=== PATIENT | male | born 1970 | race Caucasian/White ===

== ENCOUNTER 2018-05-22 16:02 | Emergency (ER) | payer OTHER ==
[~2018-05-22] VITALS: Ht 175.3 cm; Wt 72.1 kg
[2018-05-22] MEDS ORDERED: TOPROL XL100 M1 (16:39)
== END 2018-05-22 19:50 | disposition home or self-care (01) ==
LOC: ER 16:02
DX: J32.8 Other chronic sinusitis (principal)

== ENCOUNTER 2023-11-19 17:02 | Emergency (ER) | payer OTHER ==
[~2023-11-19] VITALS: Ht 172.7 cm; Wt 74.8 kg
[~2023-11-19 17:02] MED LIST: TOPROL XL100 M1
[2023-11-19 18:34] LABS: HEMATOCRIT 43.2 % (39.0-48.0); HEMOGLOBIN 14.9 g/dL (13-16.00); MEAN CELL VOLUME 93.7 fL (80.0-100.00); MEAN CORPUSCULAR HEMOGLOBIN 32.4 pg (27.00-32.0); MEAN CORPUSCULAR HGB CONC 34.6 g/dl (32.0-36.0); PLATELET COUNT 205 K/uL (150-450); RED BLOOD COUNT 4.61 M/uL (4.00-6.00); RED CELL DISTRIBUTION WIDTH 13.5 % (11.5-14.5)
[2023-11-19 18:52] LABS: PH,URINE 6.5 (5.0-8.0); URINE APPEARANCE Clear; URINE BILIRRUBIN Negative (NEGATIVE); URINE BLOOD Negative; URINE COLOR Yellow; URINE GLUCOSE Negative (NEGATIVE); URINE KETONE Negative (NEGATIVE); URINE LEUKOCYTE Negative; URINE NITRATE Negative; URINE PROTEIN Negative (NEGATIVE); URINE UROBILINOGEN 0.2 E.U./dl
[2023-11-19 19:15] LABS: URINE BACTERIA 3.7 uL (0.0-1933); URINE RBC 0.1 uL (0.0-20.8); URINE WBC 0.7 uL (0.0-23.2)
== END 2023-11-19 20:17 | disposition home or self-care (01) ==
LOC: ER 17:03
DX: M54.50 Low back pain, unspecified (principal); Z20.822 Contact with and (suspected) exposure to COVID-19; I10 Essential (primary) hypertension

== ENCOUNTER 2024-07-05 20:33 | Emergency (ER) | payer OTHER ==
[~2024-07-05] VITALS: Ht 175.3 cm; Wt 72.1 kg
[2024-07-05] MEDS ORDERED: DICYCLOMINE HCL 10 MG CAPSULE PO ONE ×2 (21:00→21:06)
[2024-07-05] MEDS ORDERED: FAMOTIDINE/PF 20 MG/2 ML VIAL IV PUSH ONE (21:00)
[2024-07-05] MEDS ORDERED: FAMOTIDINE/PF 20 MG/2 ML VIAL ONE (21:06)
[2024-07-05 21:44] LABS: BASO % 0.1 % (0.1-1.2); HEMATOCRIT 43.5 % (40.1-51.0); HEMOGLOBIN 15.3 g/dL (13.7-17.5); LYMPH # 1.76 (1.18-3.74); LYMPH % 22.4 % (19.3-53.1); MEAN CORPUSCULAR HEMOGLOBIN 31.9 pg (25.6-32.2); MONO # 0.77 (0.24-0.82); MONO % 9.8 % (4.7-12.5); NEUT % 67.4 % (34.0-71.1); PLATELET COUNT 201 K/uL (163-369); RED BLOOD COUNT 4.79 M/uL (4.63-6.08); RED CELL DISTRIBUTION WIDTH 11.5 % (11.6-14.4)
[2024-07-05 22:04] LABS: CALCIUM 9.1 mg/dL (8.5-10.1); CREATININE SERUM 1.23 mg/dL (0.70-1.30); GFR 61.55; POTASSIUM 3.94 mEq/L (3.5-5.1)
[2024-07-05 22:04] LABS: PH,URINE 5.5 (5.0-8.0); URINE APPEARANCE Clear; URINE BILIRRUBIN Negative (NEGATIVE); URINE BLOOD Negative; URINE COLOR Yellow; URINE GLUCOSE Negative (NEGATIVE); URINE LEUKOCYTE Negative; URINE NITRATE Negative; URINE PROTEIN Negative (NEGATIVE); URINE UROBILINOGEN 0.2 E.U./dl
[2024-07-05 22:05] LABS: URINE BACTERIA 6.1 uL (0.0-1933); URINE RBC 4.4 uL (0.0-20.8); URINE WBC 2.3 uL (0.0-23.2)
[2024-07-05 22:06] LABS: URINE CAST 0.29 uL (0.0-1.40); URINE EPITHELIAL CELLS 0.9 uL (0.0-38.8); URINE KETONE 80 (NEGATIVE)
== END 2024-07-05 22:35 | disposition home or self-care (01) ==
LOC: ER 21:36
PROVIDERS: General Practice
DX: R14.0 Abdominal distension (gaseous) (principal); F41.8 Other specified anxiety disorders

== ENCOUNTER → 2024-07-20 | Emergency (ER) | payer OTHER ==
[~2024-07-20] VITALS: Ht 175.3 cm; Wt 70.3 kg
== END | disposition home or self-care (01) ==
LOC: ER 03:45
DX: K59.01 Slow transit constipation (principal)

== ENCOUNTER 2024-07-24 19:34 | Emergency (ER) | payer OTHER ==
[~2024-07-24] VITALS: Ht 175.3 cm; Wt 77.1 kg
[2024-07-24] MEDS ORDERED: LACTULOSE 20 G/30 ML BLIST.PACK PO STA (19:59)
[2024-07-24] MEDS ORDERED: MINERAL OIL 30 ML BLIST.PACK PO STA (19:59)
[2024-07-24] MEDS ORDERED: MAGNESIUM HYDROXIDE 400 MG/5 ML ML PO STA (20:00)
[2024-07-24] MEDS ORDERED: MINERAL OIL 30 ML BLIST.PACK ONE (20:04)
[2024-07-24] MEDS ORDERED: MAGNESIUM HYDROXIDE 30 ML BLIST.PACK PO ONE (20:04)
[2024-07-24] MEDS ORDERED: LACTULOSE 20 G/30 ML BLIST.PACK ONE (20:04)
== END 2024-07-24 20:54 | disposition home or self-care (01) ==
LOC: ER 19:46
DX: K59.01 Slow transit constipation (principal)

== ENCOUNTER → 2024-10-31 | Emergency (ER) | payer OTHER ==
[~2024-10-31] VITALS: Ht 175.3 cm; Wt 71.7 kg
[~2024-10-31] MED LIST changes: +DEXAMETHASONE SODIUM PHOSPHATE 4 MG/ML VIAL IM ONE; +DEXAMETHASONE SODIUM PHOSPHATE 4 MG/ML VIAL ONE; +IBUPROFEN800 MG PO; +KETOROLAC TROMETHAMINE 60 MG VIAL IM ONE
== END | disposition home or self-care (01) ==
LOC: ER 12:06
DX: M75.51 Bursitis of right shoulder (principal); I10 Essential (primary) hypertension